=== PATIENT | male | born 1950 | race Caucasian/White ===

== ENCOUNTER 2018-02-21 06:37 | Inpatient (IN) | payer OTHER ==
[2018-02-21] MEDS ORDERED: ONDANSETRON PF 4 MG/2 ML VIAL. IV (08:30)
[2018-02-21] MEDS: fentaNYL PF VIAL 100 MCG/2 ML VIAL IV ×8 (09:41→23:50)
[2018-02-21 10:32] LABS: ANION GAP 11 (6-14); BLOOD UREA NITROGEN 16 mg/dL (8-26); CALCIUM 8.6 mg/dL (8.5-10.1); CARBON DIOXIDE 29 mmol/L (21-32); CHLORIDE 104 mmol/L (98-107); CREATININE 0.9 mg/dL (0.7-1.3); GFR 83.9; GLUCOSE 175 mg/dL (70-99); POTASSIUM 3.9 mmol/L (3.5-5.1); SODIUM 144 mmol/L (136-145)
[2018-02-21] MEDS: PIPERACILLIN/TAZOBACTAM 3.375 GM in IV NORMAL SALINE 50ML 50 ML IV ×3 (13:00→23:50)
[2018-02-21] MEDS ORDERED: DEXTROSE 50% 25 GM / 50ML DISP.SYRIN. IV (19:45)
[2018-02-21 20:23] LABS: POC GLUCOSE 166 mg/dL (70-99)
[2018-02-21] MEDS: INSULIN GLARGINE 300 UNITS/3 ML INSULN.PEN. SQ (22:01)
[2018-02-22] MEDS: fentaNYL PF VIAL 100 MCG/2 ML VIAL IV ×9 (01:52→21:23)
[2018-02-22] MEDS ORDERED: NON FORMULARY ITEM (Albuterol Sulfate (Proair Hfa Inhaler) 1 PUFF) INH (02:30)
[2018-02-22] MEDS: PANTOPRAZOLE 40 MG TABLET.DR. PO (05:46)
[2018-02-22] MEDS: PIPERACILLIN/TAZOBACTAM 3.375 GM in IV NORMAL SALINE 50ML 50 ML IV ×3 (05:53→18:04)
[2018-02-22] MEDS: IV RINGERS,LACTATED 1000ML 1,000 ML IV (07:00)
[2018-02-22] MEDS ORDERED: PROCHLORPERAZINE 10 MG/2 ML VIAL. IV (07:00)
[2018-02-22] MEDS ORDERED: LIDOCAINE 1% PF 2 ML VIAL. ID (07:00)
[2018-02-22] MEDS ORDERED: fentaNYL PF VIAL 100 MCG/2 ML VIAL IV ×2 (07:00)
[2018-02-22] MEDS: INSULIN LISPRO 300 UNITS/3 ML INSULN.PEN. SQ ×3 (08:00→17:00)
[2018-02-22] MEDS: BUDESONIDE 0.5 MG/2 ML NEBU. NEB ×2 (08:02→19:58)
[2018-02-22] MEDS: ALBUTEROL SULFATE 2.5 MG/3 ML NEBU. NEB ×4 (08:02→19:58)
[2018-02-22 08:25] LABS: POC GLUCOSE 138 mg/dL (70-99)
[2018-02-22] MEDS: FUROSEMIDE 20 MG TABLET PO (09:00)
[2018-02-22] MEDS: OMEGA-3 FATTY ACIDS/FISH OIL 1,000 MG CAPSULE. PO ×2 (09:00→21:10)
[2018-02-22] MEDS: POTASSIUM CHLORIDE 20 MEQ TABLET.ER. PO (09:00)
[2018-02-22] MEDS: MULTIVITAMIN with MINERAL TABLET. PO (09:00)
[2018-02-22] MEDS: ASPIRIN ENTERIC COATED 81 MG TABLET.DR. PO (09:00)
[2018-02-22] MEDS ORDERED: NON FORMULARY ITEM (Tiotropium Bromide (Spiriva) 2 INH) IH (09:00)
[2018-02-22] MEDS: LOSARTAN POTASSIUM 25 MG TABLET. PO (09:00)
[2018-02-22] MEDS: CITALOPRAM 20 MG TABLET. PO (09:00)
[2018-02-22] MEDS: CHOLECALCIFEROL (VITAMIN D3) 1,000 UNIT TABLET PO (09:00)
[2018-02-22] MEDS ORDERED: IOHEXOL 300 MG/ML 100ML VIAL. (09:37)
[2018-02-22] MEDS ORDERED: SURGICEL HEMOSTAT 4X8 EACH. (09:38)
[2018-02-22] MEDS ORDERED: fentaNYL PF VIAL 100 MCG/2 ML VIAL ×2 (11:17→14:20)
[2018-02-22] MEDS ORDERED: SUCCINYLCHOLINE 200 MG/10 ML VIAL. (11:17)
[2018-02-22] MEDS ORDERED: LIDOCAINE 2% PF Vial for OR 5 ML VIAL. (11:17)
[2018-02-22] MEDS ORDERED: ONDANSETRON PF 4 MG/2 ML VIAL. (11:17)
[2018-02-22] MEDS ORDERED: PROPOFOL 20 ML IV ×2 (11:17→12:59)
[2018-02-22] MEDS ORDERED: ROCURONIUM 50 MG/5 ML VIAL. (11:17)
[2018-02-22] MEDS ORDERED: DEXAMETHASONE SOD PHOS 20 MG/5 ML VIAL. (11:17)
[2018-02-22 11:57] LABS: POC GLUCOSE 134 mg/dL (70-99)
[2018-02-22] MEDS: BUPIVACAINE-EPI 0.25%-1:200000 50 ML VIAL. (12:04)
[2018-02-22] MEDS ORDERED: SEVOFLURANE 61 TO 120 MINUTES. IH (12:59)
[2018-02-22] MEDS ORDERED: NEOSTIGMINE METHYLSULFATE 5 MG/5 ML SYRINGE. (13:05)
[2018-02-22] MEDS ORDERED: GLYCOPYRROLATE 1 MG/5 ML VIAL. (13:05)
[2018-02-22] MEDS ORDERED: NALOXONE 0.4 MG/ML VIAL. (13:26)
[2018-02-22] MEDS ORDERED: MORPHINE SULFATE 4 MG/ML DISP.SYRIN. ×2 (13:39→14:20)
[2018-02-22] MEDS ORDERED: MIDAZOLAM HCL/PF 2 MG/2 ML VIAL. (13:39)
[2018-02-22] MEDS: MIDAZOLAM HCL/PF 2 MG/2 ML VIAL. IV (13:40)
[2018-02-22] MEDS: MORPHINE SULFATE 4 MG/ML DISP.SYRIN. IV ×4 (13:46→14:38)
[2018-02-22] MEDS ORDERED: IPRATRPIUM/ALBUTEROL 0.5/2.5MG 3 ML NEBU. NEB (14:15)
[2018-02-22] MEDS: INSULIN ASPART 100 UNIT/ML 10ML VIAL. SQ (14:18)
[2018-02-22] MEDS: IPRATRPIUM/ALBUTEROL 0.5/2.5MG 3 ML NEBU. NEB (14:32)
[2018-02-22 17:50] LABS: POC GLUCOSE 175 mg/dL (70-99)
[2018-02-22] MEDS: LACTOBACILLUS RHAMNOSUS GG 1 CAPSULE. PO (21:09)
[2018-02-22] MEDS: TAMSULOSIN 0.4 MG CAP.ER.24H. PO (21:09)
[2018-02-22] MEDS: ATORVASTATIN CALCIUM 40 MG TABLET. PO (21:09)
[2018-02-22] MEDS: lamoTRIgine 25 MG TABLET. PO (21:10)
[2018-02-22] MEDS: CYCLOBENZAPRINE 10 MG TABLET. PO (21:10)
[2018-02-22] MEDS: oxyCODONE/APAP 5/325 1 TAB TABLET PO (21:10)
[2018-02-22] MEDS: INSULIN GLARGINE 300 UNITS/3 ML INSULN.PEN. SQ (21:33)
[2018-02-23] MEDS: PIPERACILLIN/TAZOBACTAM 3.375 GM in IV NORMAL SALINE 50ML 50 ML IV ×4 (01:11→17:54)
[2018-02-23 02:46] LABS: POC GLUCOSE 165 mg/dL (70-99)
[2018-02-23] MEDS ORDERED: fentaNYL PF VIAL 100 MCG/2 ML VIAL (06:00)
[2018-02-23] MEDS: ALBUTEROL SULFATE 2.5 MG/3 ML NEBU. NEB ×4 (07:35→19:38)
[2018-02-23] MEDS: BUDESONIDE 0.5 MG/2 ML NEBU. NEB ×2 (07:38→19:38)
[2018-02-23] MEDS: INSULIN LISPRO 300 UNITS/3 ML INSULN.PEN. SQ ×3 (08:00→16:51)
[2018-02-23 08:13] LABS: POC GLUCOSE 178 mg/dL (70-99)
[2018-02-23 08:13] LABS: POC GLUCOSE 199 mg/dL (70-99)
[2018-02-23 08:30] LABS: POC GLUCOSE 127 mg/dL (70-99)
[2018-02-23] MEDS: LOSARTAN POTASSIUM 25 MG TABLET. PO (09:00)
[2018-02-23] MEDS: ASPIRIN ENTERIC COATED 81 MG TABLET.DR. PO (10:04)
[2018-02-23] MEDS: OMEGA-3 FATTY ACIDS/FISH OIL 1,000 MG CAPSULE. PO ×2 (10:04→21:25)
[2018-02-23] MEDS: POTASSIUM CHLORIDE 20 MEQ TABLET.ER. PO (10:05)
[2018-02-23] MEDS: PANTOPRAZOLE 40 MG TABLET.DR. PO (10:05)
[2018-02-23] MEDS: MULTIVITAMIN with MINERAL TABLET. PO (10:05)
[2018-02-23] MEDS: CITALOPRAM 20 MG TABLET. PO (10:05)
[2018-02-23] MEDS: CYCLOBENZAPRINE 10 MG TABLET. PO (10:06)
[2018-02-23] MEDS: FUROSEMIDE 20 MG TABLET PO (10:06)
[2018-02-23] MEDS: CHOLECALCIFEROL (VITAMIN D3) 1,000 UNIT TABLET PO (10:06)
[2018-02-23] MEDS: LACTOBACILLUS RHAMNOSUS GG 1 CAPSULE. PO ×2 (10:09→21:26)
[2018-02-23] MEDS: fentaNYL PF VIAL 100 MCG/2 ML VIAL IV ×4 (10:16→21:27)
[2018-02-23] MEDS: oxyCODONE/APAP 5/325 1 TAB TABLET PO ×3 (11:35→21:26)
[2018-02-23 16:11] LABS: POC GLUCOSE 140 mg/dL (70-99)
[2018-02-23] MEDS: ATORVASTATIN CALCIUM 40 MG TABLET. PO (21:00)
[2018-02-23 21:13] LABS: POC GLUCOSE 150 mg/dL (70-99)
[2018-02-23] MEDS: TAMSULOSIN 0.4 MG CAP.ER.24H. PO (21:25)
[2018-02-23] MEDS: lamoTRIgine 25 MG TABLET. PO (21:25)
[2018-02-23] MEDS: INSULIN GLARGINE 300 UNITS/3 ML INSULN.PEN. SQ (21:36)
[2018-02-24] MEDS: PIPERACILLIN/TAZOBACTAM 3.375 GM in IV NORMAL SALINE 50ML 50 ML IV ×3 (00:26→12:28)
[2018-02-24] MEDS: fentaNYL PF VIAL 100 MCG/2 ML VIAL IV ×5 (00:27→10:49)
[2018-02-24] MEDS: oxyCODONE/APAP 5/325 1 TAB TABLET PO ×5 (04:32→19:47)
[2018-02-24] MEDS: ALBUTEROL SULFATE 2.5 MG/3 ML NEBU. NEB ×4 (07:07→19:09)
[2018-02-24] MEDS: BUDESONIDE 0.5 MG/2 ML NEBU. NEB ×2 (07:07→19:10)
[2018-02-24] MEDS: INSULIN LISPRO 300 UNITS/3 ML INSULN.PEN. SQ ×3 (08:00→17:00)
[2018-02-24 08:14] LABS: POC GLUCOSE 133 mg/dL (70-99)
[2018-02-24] MEDS: CHOLECALCIFEROL (VITAMIN D3) 1,000 UNIT TABLET PO (08:30)
[2018-02-24] MEDS: PANTOPRAZOLE 40 MG TABLET.DR. PO (08:30)
[2018-02-24] MEDS: ASPIRIN ENTERIC COATED 81 MG TABLET.DR. PO (08:30)
[2018-02-24] MEDS: FUROSEMIDE 20 MG TABLET PO (08:31)
[2018-02-24] MEDS: CITALOPRAM 20 MG TABLET. PO (08:31)
[2018-02-24] MEDS: OMEGA-3 FATTY ACIDS/FISH OIL 1,000 MG CAPSULE. PO ×2 (08:31→20:32)
[2018-02-24] MEDS: MULTIVITAMIN with MINERAL TABLET. PO (08:32)
[2018-02-24] MEDS: LACTOBACILLUS RHAMNOSUS GG 1 CAPSULE. PO ×2 (08:32→20:32)
[2018-02-24] MEDS: POTASSIUM CHLORIDE 20 MEQ TABLET.ER. PO (08:32)
[2018-02-24] MEDS: LOSARTAN POTASSIUM 25 MG TABLET. PO (08:32)
[2018-02-24 11:34] LABS: POC GLUCOSE 122 mg/dL (70-99)
[2018-02-24 17:12] LABS: POC GLUCOSE 128 mg/dL (70-99)
[2018-02-24] MEDS: CYCLOBENZAPRINE 10 MG TABLET. PO (19:46)
[2018-02-24] MEDS: TAMSULOSIN 0.4 MG CAP.ER.24H. PO (20:32)
[2018-02-24] MEDS: ATORVASTATIN CALCIUM 40 MG TABLET. PO (20:32)
[2018-02-24] MEDS: lamoTRIgine 25 MG TABLET. PO (20:32)
[2018-02-24] MEDS: INSULIN GLARGINE 300 UNITS/3 ML INSULN.PEN. SQ (20:39)
[2018-02-24 20:44] LABS: POC GLUCOSE 147 mg/dL (70-99)
[2018-02-25] MEDS: oxyCODONE/APAP 5/325 1 TAB TABLET PO ×2 (03:34→07:47)
[2018-02-25] MEDS: ALBUTEROL SULFATE 2.5 MG/3 ML NEBU. NEB ×3 (03:38→11:57)
[2018-02-25 07:31] LABS: POC GLUCOSE 118 mg/dL (70-99)
[2018-02-25] MEDS: OMEGA-3 FATTY ACIDS/FISH OIL 1,000 MG CAPSULE. PO (07:44)
[2018-02-25] MEDS: CITALOPRAM 20 MG TABLET. PO (07:45)
[2018-02-25] MEDS: MULTIVITAMIN with MINERAL TABLET. PO (07:45)
[2018-02-25] MEDS: LACTOBACILLUS RHAMNOSUS GG 1 CAPSULE. PO (07:45)
[2018-02-25] MEDS: LOSARTAN POTASSIUM 25 MG TABLET. PO (07:46)
[2018-02-25] MEDS: CHOLECALCIFEROL (VITAMIN D3) 1,000 UNIT TABLET PO (07:46)
[2018-02-25] MEDS: ASPIRIN ENTERIC COATED 81 MG TABLET.DR. PO (07:46)
[2018-02-25] MEDS: FUROSEMIDE 20 MG TABLET PO (07:47)
[2018-02-25] MEDS: PANTOPRAZOLE 40 MG TABLET.DR. PO (07:48)
[2018-02-25] MEDS: POTASSIUM CHLORIDE 20 MEQ TABLET.ER. PO (07:48)
[2018-02-25] MEDS: INSULIN LISPRO 300 UNITS/3 ML INSULN.PEN. SQ ×2 (08:00→12:00)
[2018-02-25 08:02] LABS: POC GLUCOSE 109 mg/dL (70-99)
[2018-02-25] MEDS: BUDESONIDE 0.5 MG/2 ML NEBU. NEB (08:03)
[2018-02-25 11:34] LABS: POC GLUCOSE 100 mg/dL (70-99)
== END 2018-02-25 16:15 | disposition home or self-care (01) | DRG 354 ==
LOC: 4 NORTH 06:37
PROC: 0FT44ZZ Resection of Gallbladder, Percutaneous Endoscopic Approach (ICD-10-PCS; principal; 2018-02-22 11:00)
PROC: 0WQF4ZZ Repair Abdominal Wall, Percutaneous Endoscopic Approach (ICD-10-PCS; 2018-02-22 11:00)
DX: K42.9 Umbilical hernia without obstruction or gangrene (principal); K80.00 Calculus of gallbladder with acute cholecystitis without obstruction; Z68.42 Body mass index [BMI] 45.0-49.9, adult; E11.22 Type 2 diabetes mellitus with diabetic chronic kidney disease; J44.9 Chronic obstructive pulmonary disease, unspecified; E66.9 Obesity, unspecified; E78.5 Hyperlipidemia, unspecified; K21.9 Gastro-esophageal reflux disease without esophagitis; F32.9 Major depressive disorder, single episode, unspecified; N40.0 Benign prostatic hyperplasia without lower urinary tract symptoms; N18.9 Chronic kidney disease, unspecified; I12.9 Hypertensive chronic kidney disease with stage 1 through stage 4 chronic kidney disease, or unspecified chronic kidney disease; G47.33 Obstructive sleep apnea (adult) (pediatric); F43.10 Post-traumatic stress disorder, unspecified; Z83.3 Family history of diabetes mellitus; Z87.891 Personal history of nicotine dependence
CPT/HCPCS: 36415; 80048; 82962; 88304; 94640; 94660; 94760; 97116-GP; 97163-GP; 97166-GO; J0330; J1100; J1815; J2060; J2250; J2270; J2310; J2405; J2543; J2704; J2710; J3010; J3490; J7030; J7120; J7613; J7620; J7626; Q9967